=== PATIENT | female | born 1990 | race American Indian/Alaskan Native ===

== ENCOUNTER 2018-08-07 14:48 | Emergency (ER) | payer SELFPAY ==
[2018-08-07 14:56] VITALS: BP 119/72
[2018-08-07 15:20] LABS: Bilirubin,Urine NEG (Negative); Blood,Urine NEG (Negative); Color,Urine Yellow (Yellow); HCG Qualitative,Urine Negative (Negative); Mucus,Urine FEW /HPF; Protein,Urine <15 mg/dL mg/dL (Negative); Urobilinogen,Urine < 2.0 mg/dL (<2.0); WBC,Urine < 1.0 /HPF (0.0-6.0)
--- NOTE | 2018-08-07 16:17 | Emergency Department Report ---
ED Female HPI - General Chief complaint: Abdominal Pain Stated complaint: LOWER LEFT ABD PAIN Source: patient Mode of arrival: Ambulatory Limitations: No Limitations - History of Present Illness Initial comments: This is a 27-year-old female who presents with pelvic pressure and vaginal discharge for months. Patient states symptoms started at the beginning of this year will resolve and return. Patient states she used some suppositories brought over from [place] which improved symptoms but he continued to return. Patient reports discharge is foul older in each. Last finished period 2017, A1. Patient reports no recent exposure to STD. She denies fever, nausea or vomiting, chest pain, or abnormal vaginal bleeding. MD Complaint: vaginal discharge, pelvic pain -: month(s) Location: suprapubic Radiation: non-radiating Severity: mild Severity scale (0 -10): 3 Quality: cramping Consistency: intermittent Improves with: none Worsens with: none Are you Now?: No Last Menstrual Period: 07/24/18 EDC: 04/30/19 Associated Symptoms: vaginal discharge, abdominal pain - Related Data Sexually active: No : 2 Para: 1 A: 1 Previous Rx's Medication Instructions Recorded Last Taken Type Fluconazole [Diflucan] 150 mg PO DAILY #2 tablet 08/07/18 Unknown Rx metroNIDAZOLE [Metronidazole] 500 mg PO BID #14 tablet 08/07/18 Unknown Rx Allergies Allergy/AdvReac Type Severity Reaction Status Date / Time No Known Allergies Allergy Unverified 08/07/18 14:56 ED Review of Systems ROS: Stated complaint: LOWER LEFT ABD PAIN Other details as noted in HPI Constitutional: denies: chills, fever Respiratory: denies: cough, shortness of breath, wheezing Cardiovascular: denies: chest pain, palpitations Gastrointestinal: abdominal pain (suprapubic pressure). denies: nausea, diarrhea Genitourinary: discharge (foul odor). denies: urgency, dysuria Musculoskeletal: denies: back pain, joint swelling, arthralgia Skin: denies: rash, lesions Neurological: denies: headache, weakness, paresthesias Psychiatric: denies: anxiety, depression ED Past Medical Hx - Past Medical History Previous Medical History?: No - Surgical History Past Surgical History?: No - Social History Smoking Status: Never Smoker - Medications Home Medications: Home Medications Medication Instructions Recorded Confirmed Last Taken Type Fluconazole [Diflucan] 150 mg PO DAILY #2 tablet 08/07/18 Unknown Rx metroNIDAZOLE [Metronidazole] 500 mg PO BID #14 tablet 08/07/18 Unknown Rx ED Physical Exam - General Limitations: No Limitations General appearance: alert, in no apparent distress, obese - Respiratory Respiratory exam: Present: normal lung sounds bilaterally. Absent: respiratory distress - Cardiovascular Cardiovascular Exam: Present: regular rate, normal rhythm. Absent: systolic murmur, diastolic murmur, rubs, gallop - GI/Abdominal GI/Abdominal exam: Present: soft, tenderness (suprapubic tenderness), normal bowel sounds. Absent: distended, guarding, rebound, rigid, organomegaly, mass - External exam: Present: normal external exam Speculum exam: Present: vaginal discharge (malodorous white discharge). Absent : erythema, cervical discharge, vaginal bleeding, foreign body, tissue, laceration Bi-manual exam: Present: normal bi-manual exam - Back Exam Back exam: Present: normal inspection - Neurological Exam Neurological exam: Present: alert, oriented X3 - Psychiatric Psychiatric exam: Present: normal affect, normal mood - Skin Skin exam: Present: warm, dry, intact, normal color. Absent: rash ED Course Vital Signs 08/07/18 14:52 Temperature 99.0 F Pulse Rate 81 Respiratory 16 Rate Blood Pressure 119/72 O2 Sat by Pulse 98 Oximetry ED Medical Decision Making - Lab Data Lab Results 08/07/18 Range/Units Unknown Urine Color Yellow (Yellow) Urine Turbidity Clear (Clear) Urine pH 5.0 (5.0-7.0) Ur Specific [place] 1.024 (1.003-1.030) Urine Protein <15 mg/dl (Negative) mg/dL Urine Glucose (UA) Neg (Negative) mg/dL Urine Ketones Neg (Negative) mg/dL Urine Blood Neg (Negative) Urine Nitrite Neg (Negative) Ur Reducing Substances Not Reportable Urine Bilirubin Neg (Negative) Urine Ictotest Not Reportable Urine Urobilinogen < 2.0 (<2.0) mg/dL Ur Leukocyte Esterase Tr (Negative) Urine WBC (Auto) < 1.0 (0.0-6.0) /HPF Urine RBC (Auto) 1.0 (0.0-6.0) /HPF U Epithel Cells (Auto) 1.0 (0-13.0) /HPF Urine Mucus Few /HPF Urine HCG, Qual Negative (Negative) - Medical Decision Making This is a 27-year-old female who presents with malodorous vaginal discharge for months. Patient was examined by me. Vitals are stable and in no acute distress. Labs obtained. Wet prep via pelvic exam, positive clue cells and yeast, negative Trichomonas. Gonorrhea and chlamydia pending. Patient instructed to follow up and 3-5 days for results. Start metronidazole 500 mg by mouth bid x 7 days and diflucan 150 mg po daily x 2 days. Discharged home in stable condition. Discussed prevention options. F/U with PCP or Health Department. Critical care attestation.: If time is entered above; I have spent that time in minutes in the direct care of this critically ill patient, excluding procedure time. ED Disposition Clinical Impression: Bacterial vaginitis, Vaginal discharge, Yeast infection of the vagina Disposition: - TO HOME OR SELFCARE Is pt being admited?: No Does the pt Need Aspirin: No Condition: Stable Instructions: Bacterial Vaginosis (ED), Vulvovaginal Candidiasis (ED) Additional Instructions: Avoid drinking alcohol while taking antibiotics and for 24 hours after completion. Continue safe sexual intercourse. Follow up with Primary Care Provider or health department. Prescriptions: Fluconazole [Diflucan] 150 mg PO DAILY #2 tablet metroNIDAZOLE [Metronidazole] 500 mg PO BID #14 tablet Referrals: PRIMARY CARE, [Primary Care Provider] - 3-5 Days [facility] [Outside] - 3-5 Days [facility] [Outside] - 3-5 Days [facility] [Outside] - 3-5 Days Forms: STI Treatment and Prevention Time of Disposition: 17:25 Print Language: BELARUSIAN
== END 2018-08-07 17:46 | disposition home or self-care (01) ==
LOC: ED 14:48
DX: N76.0 Acute vaginitis (principal); B96.89 Other specified bacterial agents as the cause of diseases classified elsewhere; B37.3 Candidiasis of vulva and vagina
CPT/HCPCS: 81001; 81025; 87210; 87591; 99284

== ENCOUNTER 2021-07-03 08:52 | Emergency (ER) | payer OTHER ==
[2021-07-03 10:14] VITALS: BP 123/86
--- NOTE | 2021-07-03 11:40 | Emergency Department Report ---
ED HPI - General Chief complaint: Vaginal Bleeding Stated complaint: BLEEDING 4 WEEKS Time Seen by Provider: 07/03/21 11:14 Source: patient Mode of arrival: Ambulatory Limitations: No Limitations - History of Present Illness Initial comments: Patient is a 30-year-old female presents emergency room with complaints of lower abdominal cramping that began yesterday. Patient states that she took a [id number] test and reports that it was positive a couple weeks ago. She states her last menstrual cycle was 05/10/2021. She states this morning she began having spotting. She denies any heavy bleeding or passing clots. She denies any fever, nausea, vomiting, diarrhea, urinary symptoms, abnormal vaginal discharge. No past medical history. No allergies medications. /P: 1/A: 0 - Related Data Previous Rx's Medication Instructions Recorded Last Taken Type Fluconazole [Diflucan] 150 mg PO DAILY #2 tablet 08/07/18 Unknown Rx metroNIDAZOLE [Metronidazole] 500 mg PO BID #14 tablet 08/07/18 Unknown Rx Allergies Allergy/AdvReac Type Severity Reaction Status Date / Time No Known Allergies Allergy Unverified 08/07/18 14:56 ED Review of Systems ROS: Stated complaint: BLEEDING 4 WEEKS Other details as noted in HPI Comment: All other systems reviewed and negative ED Past Medical Hx - Past Medical History Previous Medical History?: No Additional medical history: denies - Surgical History Past Surgical History?: No Additional Surgical History: denies - Social History Smoking Status: Unknown if ever smoked - Medications Home Medications: Home Medications Medication Instructions Recorded Confirmed Last Taken Type Fluconazole [Diflucan] 150 mg PO DAILY #2 tablet 08/07/18 Unknown Rx metroNIDAZOLE [Metronidazole] 500 mg PO BID #14 tablet 08/07/18 Unknown Rx ED Physical Exam - General Limitations: No Limitations General appearance: alert, in no apparent distress - Head Head exam: Present: atraumatic, normocephalic - Eye Eye exam: Present: normal appearance - ENT ENT exam: Present: mucous membranes moist - Respiratory Respiratory exam: Present: normal lung sounds bilaterally. Absent: respiratory distress, wheezes, rales, rhonchi, stridor, chest wall tenderness, accessory muscle use, decreased breath sounds, prolonged expiratory - Cardiovascular Cardiovascular Exam: Present: regular rate, normal rhythm, normal heart sounds. Absent: systolic murmur, diastolic murmur, rubs, gallop - GI/Abdominal GI/Abdominal exam: Present: soft, normal bowel sounds. Absent: distended, tenderness, guarding, rebound, rigid - Neurological Exam Neurological exam: Present: alert, oriented X3 - Psychiatric Psychiatric exam: Present: normal affect, normal mood - Skin Skin exam: Present: warm, dry, intact ED Course Vital Signs 07/03/21 10:06 Temperature 98.0 F Pulse Rate 81 Respiratory 16 Rate Blood Pressure 123/86 O2 Sat by Pulse 100 Oximetry ED Medical Decision Making - Lab Data Result diagrams: 07/03/21 11:20 07/03/21 11:20 Lab Results 07/03/21 07/03/21 07/03/21 Range/Units 11:20 11:20 11:20 WBC 10.6 (4.5-11.0) K/mm3 RBC 5.71 H (3.65-5.03) M/mm3 Hgb 11.4 (10.1-14.3) gm/dl Hct 35.7 (30.3-42.9) % MCV 63 L (79-97) fl MCH 20 L (28-32) pg MCHC 32 (30-34) % RDW 16.8 H (13.2-15.2) % Plt Count 258 (140-440) K/mm3 Lymph % (Auto) 38.8 H (13.4-35.0) % [place] % (Auto) 5.5 (0.0-7.3) % Eos % (Auto) 1.3 (0.0-4.3) % Baso % (Auto) 0.3 (0.0-1.8) % Lymph # (Auto) 4.1 (1.2-5.4) K/mm3 [place] # (Auto) 0.6 (0.0-0.8) K/mm3 Eos # (Auto) 0.1 (0.0-0.4) K/mm3 Baso # (Auto) 0.0 (0.0-0.1) K/mm3 Seg Neutrophils % 54.1 (40.0-70.0) % Seg Neutrophils # 5.7 (1.8-7.7) K/mm3 Sodium 135 L (137-145) mmol/L Potassium 4.1 (3.6-5.0) mmol/L Chloride 101.9 (98-107) mmol/L Carbon Dioxide 25 (22-30) mmol/L Anion Gap 12 mmol/L BUN 6 L (7-17) mg/dL Creatinine 0.4 L (0.6-1.2) mg/dL Estimated GFR > 60 ml/min BUN/Creatinine Ratio 15 % Glucose 87 (65-100) mg/dL Calcium 9.4 (8.4-10.2) mg/dL Total Bilirubin 0.50 (0.1-1.2) mg/dL AST 17 (5-40) units/L ALT 21 (7-56) units/L Alkaline Phosphatase 46 (35-129) units/L Total Protein 8.1 (6.3-8.2) g/dL Albumin 4.6 (3.9-5) g/dL Albumin/Globulin Ratio 1.3 % HCG, Quant 115.0 H (0-4) mIU/mL Urine Color (Yellow) Urine Turbidity (Clear) Urine pH (5.0-7.0) Ur Specific [place] (1.003-1.030) Urine Protein (Negative) mg/dL Urine Glucose (UA) (Negative) mg/dL Urine Ketones (Negative) mg/dL Urine Blood (Negative) Urine Nitrite (Negative) Urine Bilirubin (Negative) Urine Urobilinogen (<2.0) mg/dL Ur Leukocyte Esterase (Negative) Urine WBC (Auto) (0.0-6.0) /HPF Urine RBC (Auto) (0.0-6.0) /HPF U Epithel Cells (Auto) (0-13.0) /HPF Urine Mucus /HPF Urine HCG, Qual (Negative) Blood Type 07/03/21 07/03/21 Range/Units 11:20 Unknown WBC (4.5-11.0) K/mm3 RBC (3.65-5.03) M/mm3 Hgb (10.1-14.3) gm/dl Hct (30.3-42.9) % MCV (79-97) fl MCH (28-32) pg MCHC (30-34) % RDW (13.2-15.2) % Plt Count (140-440) K/mm3 Lymph % (Auto) (13.4-35.0) % [place] % (Auto) (0.0-7.3) % Eos % (Auto) (0.0-4.3) % Baso % (Auto) (0.0-1.8) % Lymph # (Auto) (1.2-5.4) K/mm3 [place] # (Auto) (0.0-0.8) K/mm3 Eos # (Auto) (0.0-0.4) K/mm3 Baso # (Auto) (0.0-0.1) K/mm3 Seg Neutrophils % (40.0-70.0) % Seg Neutrophils # (1.8-7.7) K/mm3 Sodium (137-145) mmol/L Potassium (3.6-5.0) mmol/L Chloride (98-107) mmol/L Carbon Dioxide (22-30) mmol/L Anion Gap mmol/L BUN (7-17) mg/dL Creatinine (0.6-1.2) mg/dL Estimated GFR ml/min BUN/Creatinine Ratio % Glucose (65-100) mg/dL Calcium (8.4-10.2) mg/dL Total Bilirubin (0.1-1.2) mg/dL AST (5-40) units/L ALT (7-56) units/L Alkaline Phosphatase (35-129) units/L Total Protein (6.3-8.2) g/dL Albumin (3.9-5) g/dL Albumin/Globulin Ratio % HCG, Quant (0-4) mIU/mL Urine Color Yellow (Yellow) Urine Turbidity Clear (Clear) Urine pH 5.0 (5.0-7.0) Ur Specific [place] 1.018 (1.003-1.030) Urine Protein <15 mg/dl (Negative) mg/dL Urine Glucose (UA) Neg (Negative) mg/dL Urine Ketones Neg (Negative) mg/dL Urine Blood Sm (Negative) Urine Nitrite Neg (Negative) Urine Bilirubin Neg (Negative) Urine Urobilinogen < 2.0 (<2.0) mg/dL Ur Leukocyte Esterase Neg (Negative) Urine WBC (Auto) < 1.0 (0.0-6.0) /HPF Urine RBC (Auto) 1.0 (0.0-6.0) /HPF U Epithel Cells (Auto) 2.0 (0-13.0) /HPF Urine Mucus Few /HPF Urine HCG, Qual Positive A (Negative) Blood Type A POSITIVE - Radiology Data Radiology results: report reviewed Ordering Physician: DORIS PERKINS Date of Service: 07/03/21 Procedure(s): US OB <= 14 weeks fetus Accession Number(s): [id number] cc: DORIS PERKINS ULTRASOUND OBSTETRIC INDICATION / CLINICAL INFORMATION: , vaginal spotting/cramping. Moderate vaginal bleeding. Serum hCG = 115.2 Clinical Gestational Age (GA) in weeks, days: 7, 5 TECHNIQUE: Transabdominal. COMPARISON: None available. FINDINGS: UTERUS: No intrauterine . Endometrial complex measures 8 mm in thickness without acute abnormality. ADNEXA: Right ovary appears within normal limits. 1 cm simple cyst on the left ovary. No adnexal mass. FREE FLUID: None. ADDITIONAL FINDINGS: None. IMPRESSION: 1. No intrauterine . Clinical and laboratory correlation is recommended. Signer Name: Aidan Sorto MD Signed: 07/03/2021 1:14 PM Workstation Name: [id number] Transcribed By: DT Dictated By: Negro Sorto MD Electronically Authenticated By: Negro Sorto MD Signed Date/Time: 07/03/21 1314 DD/ 1312 TD/TT: - Medical Decision Making Patient is a 30-year-old female presents emergency room with complaints of lower abdominal cramping that began yesterday. Patient states that she took a [id number] test and reports that it was positive a couple weeks ago. She states her last menstrual cycle was 05/10/2021. She states this morning she began having spotting. She denies any heavy bleeding or passing clots. She denies any fever, nausea, vomiting, diarrhea, urinary symptoms, abnormal vaginal discharge. No past medical history. No allergies medications. /P: 1/A: 0. Vitals are normal. No abdominal tenderness on exam, no guarding, no rebound, no rigidity, no masses, no peritoneal signs. hCG quant is 115. Patient is Rh+. H&H is normal. UA without evidence of UTI. OB ultrasound: 1. No intrauterine . Clinical and laboratory correlation is recommended. Findings most likely represent spontaneous miscarriage, other less likely considerations include ectopic versus very early . Discussed the importance of outpatient [facility] follow-up. Discuss strict return precautions. Advised patient please follow up with associate account director. Please follow-up with primary care doctor. May take Tylenol as needed for cramping. Increase your fluid intake. Practice pelvic rest. Return to emergency room for any new or worsening symptoms. Critical care attestation.: If time is entered above; I have spent that time in minutes in the direct care of this critically ill patient, excluding procedure time. ED Disposition Clinical Impression: Spontaneous miscarriage Disposition: HOME / SELF CARE / HOMELESS Is pt being admited?: No Does the pt Need Aspirin: No Condition: Stable Instructions: Miscarriage, [id number] Additional Instructions: please follow up with associate account director. Please follow-up with primary care doctor. May take Tylenol as needed for cramping. Increase your fluid intake. Practice pelvic rest. Return to emergency room for any new or worsening symptoms. Referrals: PRIMARY CARE, [Primary Care Provider] - 2-3 Days DOMINICK ALEXANDER MD [Staff Physician] - 2-3 Days Time of Disposition: 13:22 Print Language: CHINESE
[2021-07-03 12:22] LABS: Bilirubin,Urine NEG (Negative); Blood,Urine SM (Negative); Color,Urine Yellow (Yellow); Mucus,Urine FEW /HPF; Protein,Urine <15 mg/dL mg/dL (Negative); Urobilinogen,Urine < 2.0 mg/dL (<2.0); WBC,Urine < 1.0 /HPF (0.0-6.0)
[2021-07-03 12:29] LABS: Alanine Aminotransferase 21 units/L (7-56); Albumin 4.6 g/dL (3.9-5); Blood Urea Nitrogen 6 mg/dL (7-17); Calcium 9.4 mg/dL (8.4-10.2); Hemolysis Index 2
[2021-07-03 12:31] LABS: HCG Qualitative,Urine Positive (Negative)
[2021-07-03 12:32] LABS: Basophils % (Auto) 0.3 % (0.0-1.8); Eosinophils # (Auto) 0.1 K/mm3 (0.0-0.4); Eosinophils % (Auto) 1.3 % (0.0-4.3); Hematocrit 35.7 % (30.3-42.9); Hemoglobin 11.4 gm/dl (10.1-14.3); Lymphocytes # (Auto) 4.1 K/mm3 (1.2-5.4); Lymphocytes % (Auto) 38.8 % (13.4-35.0); Mean Corpuscular HGB Conc 32 % (30-34); Monocytes # (Auto) 0.6 K/mm3 (0.0-0.8); Monocytes % (Auto) 5.5 % (0.0-7.3); Platelet Count 258 K/mm3 (140-440); Red Blood Count 5.71 M/mm3 (3.65-5.03); Red Cell Distribution Width 16.8 % (13.2-15.2)
[2021-07-03 12:36] LABS: Mean Corpuscular Volume 63 fl (79-97)
[2021-07-03 12:52] LABS: BUN/Creatinine Ratio 15
--- NOTE | 2021-07-03 13:18 | Ultrasound Report ---
ULTRASOUND OBSTETRIC INDICATION / CLINICAL INFORMATION: , vaginal spotting/cramping. Moderate vaginal bleeding. Se rum hCG = 115.2 Clinical Gestational Age (GA) in weeks, days: 7, 5 TECHNIQUE: Transabdominal. COMPARISON: None available. FINDINGS: UTERUS: No intrauterine . Endometrial complex measures 8 mm in thickness without acute abnor mality. ADNEXA: Right ovary appears within normal limits. 1 cm simple cyst on the left ovary. No adnexal mass . FREE FLUID: None. ADDITIONAL FINDINGS: None. IMPRESSION: 1. No intrauterine . Clinical and laboratory correlation is recommended. Signer Name: Aidan Sorto MD Signed: 07/03/2021 1:14 PM Workstation Name: [id number]
== END 2021-07-03 14:00 | disposition home or self-care (01) ==
LOC: ED 08:52
DX: O03.9 Complete or unspecified spontaneous abortion without complication (principal)
CPT/HCPCS: 36415; 76801; 80053; 81001; 81025; 84702; 85025; 86900; 86901; 99284

== ENCOUNTER 2021-07-22 22:26 | Observation (INO) | payer OTHER ==
[2021-07-22] MEDS ORDERED: SODIUM CHLORIDE 0.9% 1000 ML 1,000 ML IV ONE (22:31)
--- NOTE | 2021-07-22 22:35 | Emergency Department Report ---
HPI - General Time Seen by Provider: 07/22/21 22:31 - HPI HPI: This is a 30-year-old female who is brought back to room #19 after she passed out at the assistant front end manager upon signing in. The patient is currently awake, alert, oriented. She just flew in from [place] earlier today and says that she developed significant abdominal pain during that flight. Apparently the patient also had a syncopal episode either on the flight or in the airport. She denies any past medical history. She denies any headache, chest pain, cough, lower extremity swelling, vomiting, dysuria, vaginal bleeding or discharge. She says that it does feel like it is hard to take a deep breath due to the abdominal pain. She denies any past surgical history. Currently the abdominal pain is 7 out of 10 in intensity. No known aggravating or alleviating factors. After the patient's beta hCG came back at 1800, asked about her history. If this is the same as 3 weeks ago, the patient is . She was previously here about 19 days ago for vaginal bleeding and had a beta hCG of about 120 at that time, and a ultrasound that did not show any evidence of IUP. The patient denies any recent vaginal bleeding. She does not have any OVEREDGE MACHINE OPERATOR. ED Past Medical Hx - Past Medical History Additional medical history: denies - Surgical History Additional Surgical History: denies - Social History Smoking Status: Unknown if ever smoked - Medications Home Medications: Home Medications Medication Instructions Recorded Confirmed Last Taken Type Fluconazole [Diflucan] 150 mg PO DAILY #2 tablet 08/07/18 Unknown Rx metroNIDAZOLE [Metronidazole] 500 mg PO BID #14 tablet 08/07/18 Unknown Rx ED Review of Systems ROS: Stated complaint: FAINT Other details as noted in HPI Comment: All other systems reviewed and negative Constitutional: denies: chills, fever Eyes: denies: eye pain, vision change ENT: denies: ear pain, throat pain Respiratory: denies: cough, shortness of breath Cardiovascular: syncope. denies: chest pain, palpitations Gastrointestinal: abdominal pain, nausea. denies: vomiting, diarrhea Genitourinary: denies: dysuria, discharge Musculoskeletal: denies: back pain, arthralgia Skin: denies: rash, lesions Neurological: denies: headache, weakness Physical Exam - Physical Exam Physical Exam: GENERAL: The patient is well-developed well-nourished. HENT: Normocephalic. Atraumatic. Patient has moist mucous membranes. EYES: Extraocular motions are intact. NECK: Supple. Trachea is midline. CHEST/LUNGS: Clear to auscultation. There is no respiratory distress noted. HEART/CARDIOVASCULAR: Regular. There is no tachycardia. There is no murmur. ABDOMEN: Abdomen is soft. Generalized abdominal tenderness to palpation. No guarding. Patient has normal bowel sounds. There is no abdominal distention. SKIN: Skin is warm and dry. NEURO: The patient is awake, alert, and oriented. The patient is cooperative. The patient has no focal neurologic deficits. Normal speech. Cranial nerves II through XII grossly intact. MUSCULOSKELETAL: There is no tenderness or deformity. There is no limitation range of motion. ED Course - Consultations Consultation #1: 07/23/21 01:41 I spoke with the OVEREDGE MACHINE OPERATOR on-call, Dr. Gastelum, who is going to come into the emergency department to evaluate the patient. ED Medical Decision Making - Lab Data Result diagrams: 07/22/21 22:49 07/22/21 22:49 Lab Results 07/22/21 07/22/21 07/22/21 Range/Units 22:49 22:49 22:49 WBC 20.2 H (4.5-11.0) K/mm3 RBC 4.64 (3.65-5.03) M/mm3 Hgb 9.2 L (10.1-14.3) gm/dl Hct 29.0 L (30.3-42.9) % MCV 63 L (79-97) fl MCH 20 L (28-32) pg MCHC 32 (30-34) % RDW 17.0 H (13.2-15.2) % Plt Count 220 (140-440) K/mm3 Seg Neutrophils % Applied [employer] Science Specialist PT 13.8 (12.2-14.9) Sec. INR 1.01 (0.87-1.13) Sodium 136 L (137-145) mmol/L Potassium 4.3 (3.6-5.0) mmol/L Chloride 98.9 (98-107) mmol/L Carbon Dioxide 28 (22-30) mmol/L Anion Gap 13 mmol/L BUN 21 H (7-17) mg/dL Creatinine 0.6 (0.6-1.2) mg/dL Estimated GFR > 60 ml/min BUN/Creatinine Ratio 35 % Glucose 168 H (65-100) mg/dL Calcium 9.1 (8.4-10.2) mg/dL Total Bilirubin 0.30 (0.1-1.2) mg/dL Direct Bilirubin < 0.2 (0-0.2) mg/dL Indirect Bilirubin 0.1 mg/dL AST 15 (5-40) units/L ALT 20 (7-56) units/L Alkaline Phosphatase 44 (35-129) units/L Troponin T < 0.010 (0.00-0.029) ng/mL Total Protein 7.8 (6.3-8.2) g/dL Albumin 4.6 (3.9-5) g/dL Albumin/Globulin Ratio 1.4 % Lipase 14 (13-60) units/L HCG, Quant (0-4) mIU/mL Blood Type Antibody Screen 07/22/21 07/23/21 Range/Units 22:49 02:00 WBC (4.5-11.0) K/mm3 RBC (3.65-5.03) M/mm3 Hgb (10.1-14.3) gm/dl Hct (30.3-42.9) % MCV (79-97) fl MCH (28-32) pg MCHC (30-34) % RDW (13.2-15.2) % Plt Count (140-440) K/mm3 Seg Neutrophils % PT (12.2-14.9) Sec. INR (0.87-1.13) Sodium (137-145) mmol/L Potassium (3.6-5.0) mmol/L Chloride (98-107) mmol/L Carbon Dioxide (22-30) mmol/L Anion Gap mmol/L BUN (7-17) mg/dL Creatinine (0.6-1.2) mg/dL Estimated GFR ml/min BUN/Creatinine Ratio % Glucose (65-100) mg/dL Calcium (8.4-10.2) mg/dL Total Bilirubin (0.1-1.2) mg/dL Direct Bilirubin (0-0.2) mg/dL Indirect Bilirubin mg/dL AST (5-40) units/L ALT (7-56) units/L Alkaline Phosphatase (35-129) units/L Troponin T (0.00-0.029) ng/mL Total Protein (6.3-8.2) g/dL Albumin (3.9-5) g/dL Albumin/Globulin Ratio % Lipase (13-60) units/L HCG, Quant 1858 H (0-4) mIU/mL Blood Type A POSITIVE Antibody Screen Negative - EKG Data -: EKG Interpreted by Ok EKG shows normal: sinus rhythm, axis, intervals, QRS complexes, ST-T waves Rate: normal - EKG Data When compared to previous EKG there are: previous EKG unavailable Interpretation: normal EKG - Radiology Data Radiology results: report reviewed ULTRASOUND OBSTETRIC REASON FOR EXAM: , Abd pain TECHNIQUE: Transabdominal and transvaginal ultrasound was performed to evaluate a first trimester . COMPARISON: None available. FINDINGS: Uterus: Uterus measures 10.4 x 4.4 x 3.9 cm. Endometrial stripe measures 0.7 cm. No IUP is visualized. Calcification in the anterior uterus likely reflects fibroid. Right ovary: Right ovary measures 2.9 x 2.4 x 3.1 cm. No significant mass. Normal ovarian Doppler flow. Left ovary: Left ovary measures 3 x 2.2 x 3.5 cm. There is a 1.3 cm cyst within the right ovary, may reflect follicle or corpus luteum cyst. No suspicious mass. Normal color Doppler flow. Free fluid: There is moderate free fluid in the cul-de-sac and right adnexa with echogenic debris. This could reflect hemorrhage. IMPRESSION: No IUP is visualized. Findings may reflect early normal , spontaneous , or ectopic . No suspicious mass is identified in either adnexa; however, there is moderate com plex free fluid in the cul-de-sac and right adnexa, which is concerning for hemorrhage. Recommend OB consultation. - Medical Decision Making This patient presents to the emergency department with acute generalized abdominal pain that started earlier in the day. The patient also had 2 syncopal episodes, one at the [place] airport, and another upon arrival to our emergency department. At the time of my initial examination the patient is awake, alert, oriented, AAO x3. She does have significant reproducible generalized abdominal tenderness to palpation. The abdomen is soft, nondistended. Patient's vital signs have been reassuring throughout her ED course thus far including being afebrile. The patient was here a little less than 3 weeks ago. At that time she had a white blood cell count of about 10,000, hemoglobin of 11, and a beta-hCG of about 120. Today the patient has a leukocytosis of 20,000, hemoglobin of 9, and a beta-hCG of about 1800. Transvaginal ultrasound does not show any evidence of intrauterine . However there is a moderate amount of complex fluid in the cul-de-sac and right adnexa concerning for hemorrhage. All this together is concerning for an ectopic or even possible rupture. OVEREDGE MACHINE OPERATOR on-call was contacted and came to evaluate the patient in the emergency department. The patient will be admitted to the service of Dr. Gastelum and the patient has been taken to the OR this evening for diagnostic laparoscopy, and if necessary salpingectomy. Critical Care Time: Yes Critical care time in (mins) excluding proc time.: 35 Critical care attestation.: If time is entered above; I have spent that time in minutes in the direct care of this critically ill patient, excluding procedure time. Critical care time was spent on this patient in doing her initial evaluation, multiple reevaluations, ordering and interpretation of labs and imaging, IV analgesia, discussion with the radiologist, discussion with the OVEREDGE MACHINE OPERATOR on-call. Critical Care Time: 35 minutes ED Disposition Clinical Impression: Ectopic without intrauterine Qualifiers: Location of ectopic : unspecified location Qualified Code(s): O00.90 - Unspecified ectopic without intrauterine Anemia Qualifiers: Anemia type: unspecified type Qualified Code(s): D64.9 - Anemia, unspecified Disposition: ADMITTED INPATIENT Is pt being admited?: Yes Condition: Serious Time of Disposition: 03:45
[2021-07-22 23:16] LABS: Hemoglobin 9.2 gm/dl (10.1-14.3); Mean Corpuscular HGB Conc 32 % (30-34); Platelet Count 220 K/mm3 (140-440); Red Blood Count 4.64 M/mm3 (3.65-5.03)
[2021-07-22 23:17] LABS: Mean Corpuscular Volume 63 fl (79-97)
[2021-07-22 23:24] LABS: INR 1.01 (0.87-1.13)
[2021-07-22 23:28] LABS: Alanine Aminotransferase 20 units/L (7-56); Albumin 4.6 g/dL (3.9-5); Blood Urea Nitrogen 21 mg/dL (7-17); Calcium 9.1 mg/dL (8.4-10.2); Hemolysis Index 1
[2021-07-22 23:29] LABS: BUN/Creatinine Ratio 35; Bilirubin,Direct < 0.2 mg/dL (0-0.2)
[2021-07-23] MEDS ORDERED: MORPHINE 4 MG/1 ML INJ IV ONE (00:57)
--- NOTE | 2021-07-23 01:33 | Ultrasound Report ---
ULTRASOUND OBSTETRIC REASON FOR EXAM: , Abd pain TECHNIQUE: Transabdominal and transvaginal ultrasound was performed to evaluate a first trimester pre gnancy. COMPARISON: None available. FINDINGS: Uterus: Uterus measures 10.4 x 4.4 x 3.9 cm. Endometrial stripe measures 0.7 cm. No IUP is visualized . Calcification in the anterior uterus likely reflects fibroid. Right ovary: Right ovary measures 2.9 x 2.4 x 3.1 cm. No significant mass. Normal ovarian Doppler ambrocio w. Left ovary: Left ovary measures 3 x 2.2 x 3.5 cm. There is a 1.3 cm cyst within the right ovary, may reflect follicle or corpus luteum cyst. No suspicious mass. Normal color Doppler flow. Free fluid: There is moderate free fluid in the cul-de-sac and right adnexa with echogenic debris. Th is could reflect hemorrhage. IMPRESSION: No IUP is visualized. Findings may reflect early normal , spontaneous , or ectopic p regnancy. No suspicious mass is identified in either adnexa; however, there is moderate complex free fluid in the cul-de-sac and right adnexa, which is concerning for hemorrhage. Recommend OB consultati on. Findings were discussed with Dr. Palmer by phone on 07/23/2021 at 12:29 AM Signer Name: Franklin Conklin MD Signed: 07/23/2021 1:29 AM Workstation Name: [id number]
--- NOTE | 2021-07-23 02:45 | History and Physical Report ---
History of Present Illness Date of examination: 07/23/21 Chief complaint: abdominal pain History of present illness: Patient is a at unknown gestation (10w4d by LMP of 05/10/2021) presenting with abdominal pain. Notes it began earlier today is located all over. Notes she boarded a plane from [place] earlier this afternoon when it began. States it initially began as cramping in her lower abdomen, but progressed to sharp pain throughout. Notes it became painful to take in a deep breath. Following the flight patient notes that she "passed out," at the [place] airport. Notes a second syncopal episode upon arrival to the ED. States pain continues despite medication and she currently rates it 08/12. Notes some nausea. Denies any vaginal bleeding, fevers, chills, chest pain, SOB, vomiting. Past History Past Medical History: No medical history (OB Hx: G1: FT C/S 2013; G2- current ADVANCED PRACTICE NURSE Hx: LMP 05/10/2021 Reg menses) Past Surgical History: Social history: no significant social history Family history: no significant family history Medications and Allergies Allergies Allergy/AdvReac Type Severity Reaction Status Date / Time No Known Allergies Allergy Unverified 08/07/18 14:56 Home Medications Medication Instructions Recorded Confirmed Last Taken Type Fluconazole [Diflucan] 150 mg PO DAILY #2 tablet 08/07/18 Unknown Rx metroNIDAZOLE [Metronidazole] 500 mg PO BID #14 tablet 08/07/18 Unknown Rx Active Meds: Vitamin C, ferrous sulfate Review of Systems All systems: negative Respiratory: pain on inspiration Gastrointestinal: abdominal pain Exam - Constitutional Vitals: Temp Pulse Resp BP Pulse Ox 98.0 F 99 H 21 120/61 100 07/23/21 00:19 07/23/21 01:15 07/23/21 01:15 07/23/21 01:15 07/23/21 01:15 General appearance: Present: mild distress - EENT Eyes: Present: PERRL, EOM intact - Respiratory Respiratory effort: normal - Extremities Extremities: No edema - Abdominal General gastrointestinal: Present: soft, tender Female genitourinary: Present: normal - Integumentary Integumentary: Present: clear, warm, dry - Psychiatric Psychiatric: appropriate mood/affect (abdomen soft, tender to palpation. +rebound, but no guarding ) HEART Score - HEART Score Troponin: Troponin T < 0.010 ng/mL (0.00-0.029) 07/22/21 22:49 Results - Labs CBC & Chem 7: 07/22/21 22:49 07/22/21 22:49 Labs: Abnormal lab results 07/22/21 07/22/21 07/22/21 Range/Units 22:49 22:49 22:49 WBC 20.2 H (4.5-11.0) K/mm3 Hgb 9.2 L (10.1-14.3) gm/dl Hct 29.0 L (30.3-42.9) % MCV 63 L (79-97) fl MCH 20 L (28-32) pg RDW 17.0 H (13.2-15.2) % Sodium 136 L (137-145) mmol/L BUN 21 H (7-17) mg/dL Glucose 168 H (65-100) mg/dL HCG, Quant 1858 H (0-4) mIU/mL - Imaging and Cardiology US - abdomen: report reviewed (fluid noted in the cul-de-sac with concern for hemorrhage ) Assessment and Plan - Patient Problems (1) Ectopic without intrauterine Status: Acute Qualifiers: Location of ectopic : unspecified location Qualified Code(s): O00.90 - Unspecified ectopic without intrauterine Plan to address problem: -Patient with empty uterus noted on today's exam, but fluid noted in the cul -de-sac, concerning for blood - HCG 1858 up from 115 on 07/03/2021 - Stable, but concern for ectopic based on history and exam - Discussed with patient findings and recommend further evaluation with diagnostic laparoscopy. Benefits and risks reviewed. - Procedure and blood consents signed - To OR for diagnostic laparoscopy, possible salpingectomy. OR notified (2) Anemia Status: Acute Qualifiers: Anemia type: unspecified type Qualified Code(s): D64.9 - Anemia, unspecified Plan to address problem: -Hgb 9.2 from 11.4 on visit 07/03 - Consented for blood products
[2021-07-23 03:41] LABS: Total Cells Counted 100
[2021-07-23 03:42] LABS: Anisocytosis 1+; Platelet Estimate Consistent w Auto
[2021-07-23] MEDS ORDERED: ceFAZolin/Water 2 GM/20 ML 2 GM/20 ML SYRINGE IV NR (04:00)
[2021-07-23] MEDS ORDERED: BUPIVACAINE/PF (0.5%) 5 MG/1 ML 30 ML VIAL INFILTRATI ONE ×2 (07:04→08:12)
[2021-07-23] MEDS ORDERED: HYDROmorphone 1 MG/1 ML INJ IV PRN ×2 (07:17)
[2021-07-23] MEDS ORDERED: ONDANSETRON 4 MG/2 ML INJ IV PRN (07:17)
--- NOTE | 2021-07-23 07:18 | Anesthesia Day of Surgery ---
Anesthesia Day of Surgery - Day of Surgery Patient Examined: Yes Patient H&P Reviewed: Yes Patient is NPO: Yes
[2021-07-23] MEDS ORDERED: propofoL 200 MG/20 ML VIAL IV ONE (07:19)
[2021-07-23] MEDS ORDERED: MIDAZOLAM 2 MG/2 ML INJ ONE (07:19)
[2021-07-23] MEDS ORDERED: fentaNYL 100 MCG/2 ML INJ ONE (07:19)
--- NOTE | 2021-07-23 07:21 | Anesthesia Consultation ---
Anesthesia Consult and Med Hx Date of service: 07/23/21 - Airway Anesthetic Teeth Evaluation: Good ROM Head & Neck: Adequate Mental/Hyoid Distance: Adequate Mallampati Class: Class II Intubation Access Assessment: Good - Pre-Operative Health Status ASA Pre-Surgery Classification: ASA2, Emergency Proposed Anesthetic Plan: General - Pulmonary Hx Smoking: No - Hematic Hx Anemia: Yes
[2021-07-23] MEDS ORDERED: KETAMINE/STERILE WATER 50 MG/ML SYRINGE ONE (07:59)
[2021-07-23] MEDS ORDERED: KETOROLAC 30 MG/1 ML INJ ONE (07:59)
[2021-07-23] MEDS ORDERED: ROCURONIUM 50 MG/5 ML INJ IV ONE (07:59)
[2021-07-23] MEDS ORDERED: LIDOCAINE MPF (2%) 20 MG/1 ML VIAL 5 ML ONE (07:59)
[2021-07-23] MEDS ORDERED: ONDANSETRON 4 MG/2 ML INJ ONE (07:59)
[2021-07-23] MEDS ORDERED: dexAMETHasone 20 MG/5 ML VIAL ONE (07:59)
[2021-07-23] MEDS ORDERED: SODIUM CHLORIDE 0.9% IRRIG SOLN 2000 ML IR ONE (08:18)
[2021-07-23] MEDS ORDERED: SODIUM CHLORIDE 0.9% IRR 1,500 ML BOTTLE IR ONE (08:18)
[2021-07-23] MEDS ORDERED: GLYCOPYRROLATE 0.4 MG/2 ML INJ ONE (08:54)
[2021-07-23] MEDS ORDERED: LACTATED RINGERS 2,000 ML ONE (08:54)
[2021-07-23] MEDS ORDERED: NEOSTIGMINE 10MG/10 ML INJ MDV ONE (08:54)
--- NOTE | 2021-07-23 09:14 | Post Operative Note ---
Pre-op diagnosis: ruptured ectopic Post-op diagnosis: other (Ruptured left ectopic , hemoperitoneum) Findings: Omental adhesions to the anterior abdominal wall. Large organized clot, approximately 500 ml of blood, left tube ruptured near the ampulla, products of conception protruding. Omental adhesion to the uterus. Bilateral tubes and ovaries normal in appearance. Procedure: Diagnostic laparoscopy, lysis of adhesions, left salpingectomy. Anesthesia: GETA Surgeon: VALERIA JUAREZ Estimated blood loss: other (500 ml) Pathology: list (left fallopian tube and adnexal mass) Specimen disposition: to lab Condition: stable Disposition: PACU
[2021-07-23] MEDS ORDERED: ONDANSETRON 4 MG ODT TAB PO PRN (09:30)
[2021-07-23] MEDS ORDERED: oxyCODONE /ACETAMINOPHEN 5-325MG TAB PO PRN (10:00)
--- NOTE | 2021-07-23 12:00 | Operative Report ---
Operative Report Operative Report: DATE OF OPERATION: 07/23/2021 PREOPERATIVE DIAGNOSES: 1.Suspected ruptured ectopic POSTOPERATIVE DIAGNOSES: 1. Left ruptured ectopic 2. Hemoperitoneum 3. Pelvic adhesions PROCEDURE: Diagnostic laparoscopy, left salpingectomy, lysis of adhesions SURGEON: Jing Gastelum MD ANESTHESIA: MARCE ESTIMATED BLOOD LOSS: 500 ml DRAINS: None. IV FLUIDS: 1000 ml UOP: 200 ml at the start of the case COMPLICATIONS: None. FINDINGS: Omental adhesions to the anterior abdominal wall. Large organized clot, approximately 500 ml of blood, left tube ruptured in the ampulla near the isthmus of the tube, products of conception protruding through. Omental adhesion to the uterus. Right tube and bilateral ovaries normal in appearance. TECHNIQUE: The patient was seen in the Holding Room. The risks, benefits, complications, treatment options, and expected outcomes were discussed with the patient. The patient concurred with the proposed plan, giving informed consent. The patient was taken to Operating Room, identified as Laisha Schwab and the procedure verified. A Time Out was held and the above information confirmed. SCD's were in place and connected. She received Ancef 2 gm IV for perioperative antibiotics. After induction of anesthesia, the patient was placed in dorsal li thotomy position. The patient was then prepped and draped in the usual sterile manner. The bladder was drained with a red rubber catheter. A sponge stick was placed in the vagina for uterine manipulation. Attention was then turned to the abdomen. A stab incision was made in the umbilicus with the scalpel. The anterior abdominal wall was elevated with towel clamps and a Veress needle was inserted. Saline drop test confirmed entry into the abdomen. The insufflator was attached was initial pressures were < 5 mmHg. The insufflator was set to high flow to maintain an intra-abdominal pressure of 15 mm Hg. Once insufflation was complete, a 12 mm vertical incision was made in the umbilicus. A 12 mm trcoar was then inserted under direct visualization using a 5 mm 0 degree scope. A survey of the abdomen revealed a large organized blood clot with approximately 500 cc of blood. A 5 mm trocar was placed in the left lower quadrant. A grasper was introduced and attention was turned to the fallopian tubes. The right tube was traced from its insertion in the uterus to the fimbriae and noted to be normal in appearance. The same was done with the left tube, but it was noted to be ruptured in the ampulla near the isthmus of the tube with products of conception protruding through. The decision was made to remove the left tube. The tube was serially cut and coagulated using the Ligasure and removed at its insertion in the uterus. A 10 mm Endocatch bag was introduced into the abdomen, the tube and products were placed iside, and the bag was removed under direct visualization. The tubal stump was cauterized. Excellent hemostasis was noted. The abdomen and pelvis was them irrigated and the clot dissolved and suctioned. A final survey was made and hemostasis was confirmed. All instruments were removed from the abdomen. The pneumoperitoneum was decompressed and the laparoscopic trocars were removed. The fascia at 12-mm trocar site was reapproximated with 0 Vicryl. The skin incisions were closed using 4-0 Monocryl and injected with 0.25% marcaine. Dermabond was applied. The final sponge, needle and instrument counts were correct. The patient tolerated the procedure well and was awakened from her anesthetic, extubated and taken to the recovering room in stable condition.
[2021-07-23] MEDS ORDERED: LACTATED RINGERS 1,000 ML ONE (12:01)
[2021-07-23] MEDS ORDERED: LACTATED RINGERS 500 ML IV ONE (12:11)
[2021-07-23 13:21] LABS: Hematocrit 23.2 % (30.3-42.9); Hemoglobin 7.5 gm/dl (10.1-14.3); Mean Corpuscular HGB Conc 32 % (30-34); Platelet Count 186 K/mm3 (140-440); Red Blood Count 3.78 M/mm3 (3.65-5.03); Red Cell Distribution Width 16.7 % (13.2-15.2)
[2021-07-23 13:23] LABS: Mean Corpuscular Volume 61 fl (79-97)
[2021-07-23] MEDS ORDERED: IBUPROFEN 800 MG TAB PO PRN (14:00)
[2021-07-23] MEDS ORDERED: SODIUM CHLORIDE 0.9% 500 ML 500 ML IV ONE (14:55)
[2021-07-23] MEDS ORDERED: diphenhydrAMINE 50 MG/ML VIAL IV PRN (14:58)
[2021-07-23] MEDS ORDERED: ACETAMINOPHEN 325 MG TAB PO PRN (14:59)
--- NOTE | 2021-07-23 15:04 | Event Note ---
Date: 07/23/21 Patient is a 30 yo POD#0 s/p dx lap, LS, and MARIA D for ruptured ectopic . Doing well. Notes some abdominal pain following surgery. Noted to be tachycardia with postop Hgb of 7.5. Discussed blood transfusion and patient amenable. 2 units pRBCs ordered to be transfused. May be discharged following transfusion. Discussed postoperative follow up and appointment given. Will re- evaluate for possible discharge post-transfusion.
[2021-07-23] MEDS ORDERED: SODIUM CHLORIDE 0.9% 500 ML 500 ML ONE (18:25)
[2021-07-23] MEDS: MORPHINE 4 MG/1 ML INJ IV PRN (18:41)
--- NOTE | 2021-07-23 18:43 | Post Anesthesia Evaluation ---
- Post Anesthesia Evaluation Patient Participated: Yes Airway Patent: Yes Stable Respiratory Function: Yes Nausea/Vomiting: No Temp > 96.8F: Yes Pain Manageable: Yes Adequeate Hydration: Yes Anesthesia Complications: No Block Receding Appropriately: Not Applicable Patient on Ventilator: No
--- NOTE | 2021-07-23 21:56 | Event Note ---
Date: 07/23/21 Called to follow up transfusion progress. RN informed me she just about to start giving the blood
[2021-07-24] MEDS: MORPHINE 4 MG/1 ML INJ IV PRN (07:48)
[2021-07-24 08:36] LABS: Hematocrit 26.6 % (30.3-42.9); Hemoglobin 8.6 gm/dl (10.1-14.3)
--- NOTE | 2021-07-24 11:37 | Electrocardiograph Report ---
[facility] Test Date: 2021-07-23 Test Time: 00:28:41 Pat Name: PRIYA COBIAN Department: Room: 210 1 Gender: F Supervisor Maintenance: SHERRY : 1990 Requested By: SRINIVASAN MIDDLETON Order Number: [id number] Reading MD: Julián Handley Measurements Intervals [place] Rate: 99 P: 44 GA: 124 QRS: 16 QRSD: 86 T: 23 QT: 344 QTc: 443 Interpretive Statements Sinus rhythm t wave inversion anterior leads No previous ECG available for comparison Electronically Signed On 07-24-2021 11:36:52 EDT by Julián Handley
--- NOTE | 2021-07-24 14:34 | Progress Note ---
Assessment and Plan - Patient Problems (1) Cough Current Visit: Yes Status: Acute Plan to address problem: We will check chest x-ray to evaluate for pneumonia as well as chest CT for PE (2) Anemia Current Visit: Yes Status: Acute Qualifiers: Other causes of anemia: acute posthemorrhagic Plan to address problem: Appears stable will recheck CBC now (3) Ectopic without intrauterine Current Visit: Yes Status: Acute Qualifiers: Location of ectopic : unspecified location Qualified Code(s): O00.90 - Unspecified ectopic without intrauterine (4) Ruptured ectopic Current Visit: Yes Status: Acute Subjective - Subjective Date of service: 07/24/21 Principal diagnosis: POD# 1s/p Diagnostic laparoscopy, left salpingectomy, lysis of adhesions Patient reports: appetite normal, voiding normally, other (Cough) Objective - Vital Signs Latest vital signs: Vital Signs Temp Pulse Resp BP BP Pulse Ox 07/24/21 10:35 98 07/24/21 07:31 98.3 F 100 H 18 107/69 98 07/24/21 07:25 97 07/24/21 03:20 98 F 102 H 18 109/63 100 07/24/21 03:05 98.1 F 91 H 19 109/63 100 07/24/21 02:35 98 F 90 18 101/63 100 07/24/21 02:05 98.1 F 89 18 103/57 100 07/24/21 01:50 98 F 90 19 102/61 100 07/24/21 01:17 98.2 F 105 H 18 102/48 98 07/24/21 00:31 93 H 17 132/69 86 07/24/21 00:30 98 F 98 H 18 109/65 100 07/24/21 00:20 80 24 132/69 92 07/24/21 00:16 98 F 105 H 18 102/48 98 07/24/21 00:11 87 20 119/63 92 07/24/21 00:01 88 17 120/62 94 07/23/21 23:50 91 H 17 120/62 89 07/23/21 23:41 81 11 L 124/72 89 07/23/21 23:31 80 14 134/76 90 07/23/21 23:20 111 H 17 156/106 94 07/23/21 23:15 98.0 F 100 H 18 100/50 100 09/20/21 23:11 99 H 15 151/67 97 09/20/21 23:01 80 23 134/76 94 09/20/21 22:51 87 24 134/76 94 09/20/21 22:45 98.0 F 98 H 18 100/55 100 09/20/21 22:41 89 16 150/90 95 09/20/21 22:31 92 H 14 141/108 96 09/20/21 22:20 87 22 141/108 95 09/20/21 22:15 98.0 F 103 H 19 101/52 100 09/20/21 22:11 78 16 140/76 95 09/20/21 22:01 99 H 27 H 151/76 97 09/20/21 22:00 97.9 F 96 H 18 102/53 98 09/20/21 21:50 93 H 16 151/76 94 09/20/21 21:41 103 H 18 138/78 95 09/20/21 21:31 82 25 H 143/74 98 09/20/21 21:20 88 22 139/72 95 09/20/21 21:11 88 18 136/73 94 09/20/21 21:01 81 16 143/74 94 09/20/21 20:50 98.2 F 80 15 143/74 100/54 97 09/20/21 20:41 87 31 H 129/78 96 09/20/21 20:31 85 21 141/75 96 09/20/21 20:21 142/89 95 09/20/21 20:11 141/75 96 09/20/21 20:01 100 H 18 141/75 97 09/20/21 19:51 88 18 140/72 96 09/20/21 19:41 82 19 140/72 97 09/20/21 19:31 134/75 94 09/20/21 19:20 134/75 97 09/20/21 19:11 139/68 98 09/20/21 19:01 133/68 98 09/20/21 18:50 133/68 98 09/20/21 18:41 123/61 98 09/20/21 18:31 128/68 96 09/20/21 18:20 117/58 96 09/20/21 18:11 122/59 96 09/20/21 18:01 129/95 97 09/20/21 17:50 128/68 96 07/23/21 17:41 141/74 93 07/23/21 17:31 141/74 96 07/23/21 17:21 141/74 96 07/23/21 17:11 129/95 96 07/23/21 17:01 134/99 94 07/23/21 16:51 134/99 95 07/23/21 16:41 141/74 95 07/23/21 16:31 143/70 95 07/23/21 16:20 143/70 97 07/23/21 16:11 133/74 97 07/23/21 16:01 133/74 97 07/23/21 15:50 133/74 96 07/23/21 15:41 139/80 96 07/23/21 15:31 137/81 95 07/23/21 15:20 137/81 95 07/23/21 15:11 147/63 96 07/23/21 15:01 139/64 97 07/23/21 15:00 97.7 F 111 H 17 122/73 100 07/23/21 14:50 139/64 95 07/23/21 14:45 97.7 F 111 H 20 123/73 100 07/23/21 14:41 127/64 97 Intake and Output 07/23/21 07/24/21 07/24/21 22:59 06:59 14:59 Intake Total 240 920 Output Total 200 Balance 240 720 Intake: Intake, Free Water 240 420 Blood Product 0 500 Leukoreduced Red Blood 0 250 Cells Unit [id number] Leukoreduced Red Blood 250 Cells Unit [id number] Output: Urine 200 Void 200 Other: Total, Output Amount 200 Voiding Method Toilet Toilet # Voids Void 1 - Labs Labs: Abnormal lab results 07/23/21 07/24/21 Range/Units 02:00 08:22 Hgb 8.6 L (10.1-14.3) gm/dl Hct 26.6 L (30.3-42.9) % Crossmatch See Detail
--- NOTE | 2021-07-24 15:15 | XRay Report ---
CHEST PA AND LATERAL VIEWS INDICATION: cough, s/p surgery. COMPARISON: None. FINDINGS: Support devices: None. Heart: Within normal limits. Lungs/Pleura: Linear density radiating from the right hilum superior laterally may be an area of atel ectasis or scarring. Mild bibasilar opacities may be atelectatic given low lung volumes. No pleural a bnormality. IMPRESSION: 1. No acute findings. Signer Name: Scooter Jacobson MD Signed: 07/24/2021 3:11 PM Workstation Name: [id number]
--- NOTE | 2021-07-24 15:31 | Cat Scan Report ---
CTA CHEST WITH IV CONTRAST INDICATION: chest pain, evaluate for PE OMNI 350 100 ML. TECHNIQUE: Axial CT images were obtained through the chest after injection of IV contrast. 3 plane MIP reconstru ctions were produced. All CT scans at this location are performed using CT dose reduction for ALARA b y means of automated exposure control. COMPARISON: None available. FINDINGS: Pulmonary Arteries: No pulmonary emboli. Thoracic Aorta: No acute abnormality. Heart: Normal. Lungs: No acute air space or interstitial disease. There are mild atelectatic changes in the dependen t lung bases. Pleura: No pleural effusion. No pneumothorax. Lymph Nodes: No significant adenopathy. Additional Findings: None. Upper Abdomen: There is a small amount of pneumoperitoneum in the included upper abdomen which is lik jake related to recent surgery. Skeletal Structures: No significant osseous abnormality. IMPRESSION: 1. No CT evidence for pulmonary embolism. 2. No acute pulmonary or pleural findings. 3. Mild pneumoperitoneum and the included upper abdomen is likely due to recent surgery. This is inco mpletely included on this CT chest. Signer Name: Scooter Jacobson MD Signed: 07/24/2021 3:27 PM Workstation Name: [id number]
[2021-07-24] MEDS ORDERED: guaiFENesin 100 MG/5 ML ORAL LIQD PO PRN (16:29)
[2021-07-24 17:26] LABS: Hematocrit 26.7 % (30.3-42.9); Hemoglobin 8.5 gm/dl (10.1-14.3)
[2021-07-24 17:53] VITALS: BP 111/64
[2021-07-24 17:59] LABS: Bilirubin,Urine NEG (Negative); Blood,Urine MOD (Negative); Color,Urine Straw (Yellow); Protein,Urine <15 mg/dL mg/dL (Negative); Urobilinogen,Urine < 2.0 mg/dL (<2.0)
--- NOTE | 2021-07-24 18:21 | Discharge Summary ---
Providers - Providers Date of Admission: 07/23/21 03:46 Date of discharge: 07/24/21 Attending physician: VALERIA JUAREZ MD Primary care physician: [employer] Hospitalization Condition: Good Procedures: Diagnostic laparoscopy, left salpingectomy, lysis of adhesions Hospital course: This is a 30-year-old female who presented to the emergency room for suspected ectopic . She underwent diagnostic laparoscopy with left salpingectomy and lysis of adhesions for left ectopic . Her postoperative course was complicated by symptomatic anemia for which she received 2 units of packed red blood cells. Her hemoglobin only increased slightly therefore hemoglobin was drawn on postoperative day 1 to ensure was stable. Also on postoperative day #1 patient complained of cough and some chest discomfort. CT scan was normal chest CT for PE was negative.Patient had no further complaints and desires discharge home at this Disposition: 01 HOME / SELF CARE / HOMELESS Final Discharge Diagnosis (Prints w/discharge instructions): Diagnostic laparoscopy, left salpingectomy, lysis of adhesions - Discharge Diagnoses (1) Cough Status: Acute (2) Anemia Status: Acute Qualifiers: Other causes of anemia: acute posthemorrhagic (3) Ectopic without intrauterine Status: Acute Qualifiers: Location of ectopic : unspecified location Qualified Code(s): O00.90 - Unspecified ectopic without intrauterine (4) Ruptured ectopic Status: Acute Core Measure Documentation - Palliative Care Palliative Care/ Comfort Measures: Not Applicable - Core Measures Any of the following diagnoses?: none Exam - Constitutional Vitals: Temp Pulse Resp BP Pulse Ox 98.4 F 95 H 18 111/64 100 07/24/21 16:51 07/24/21 16:51 07/24/21 16:51 07/24/21 16:51 07/24/21 16:51 General appearance: Present: no acute distress Plan Activity: other (No sex. Ambulate approximately 1 mile [address] your property every day. Use your incentive spirometer every hour while awake ) Weight Bearing Status: Full Weight Bearing Diet: regular Wound: open to air, keep clean and dry Special Instructions: no heavy lifting (Greater than 15 pounds) Follow up with: VALERIA JUAREZ MD [Staff Physician] - 14 Days (Patient postoperative appointment August 06, 2021 at 10:[address] Nirav Moyer) PRIMARY CAREMD [Primary Care Provider] - 14 Days () Forms: Outpatient Surgery DC Inst. Prescriptions: Docusate Sodium [Colace] 100 mg PO BID #60 capsule Ferrous Sulfate [Feosol 325 MG tab] 325 mg PO QDAY #30 tablet Ibuprofen [Motrin 800 MG tab] 800 mg PO Q8HR #30 tablet oxyCODONE /ACETAMINOPHEN [Percocet 5/325] 1 tab PO Q6HR PRN #12 tablet PRN Reason: Pain
== END 2021-07-24 21:03 | disposition home or self-care (01) ==
LOC: ED 22:26 → OB 07-23 03:46
PROVIDERS: ADMIT Student in an Organized Health Care Education/Training Program; ATTEND Student in an Organized Health Care Education/Training Program
DX: O00.90 Unspecified ectopic pregnancy without intrauterine pregnancy (principal); Z20.822 Contact with and (suspected) exposure to COVID-19; O99.011 Anemia complicating pregnancy, first trimester; D64.9 Anemia, unspecified; O26.891 Other specified pregnancy related conditions, first trimester; N83.9 Noninflammatory disorder of ovary, fallopian tube and broad ligament, unspecified; R05 Cough; Z3A.10 10 weeks gestation of pregnancy
CPT/HCPCS: 36415; 36430; 58661; 71046; 71275; 76801; 76830; 80048; 80076; 81001; 83690; 84484; 84702; 85014; 85018; 85025; 85027; 85610; 86850; 86900; 86901; 86920; 88305; 93005; 96361; 96374; 96375; 96376; 99291; A4217; G0378; J1100; J1170; J1200; J1885; J2250; J2270; J2405; J2704; J2710; J3010; J3490; J7030; J7040; P9016; Q9967; U0003; 76817; 85007; J7120